=== PATIENT | male | born 1985 | race Caucasian/White ===

== ENCOUNTER → 2016-04-20 | Outpatient (CLI) | payer OTHER ==
--- NOTE | 2016-04-23 11:50 | RAD ---
EXAM DESCRIPTION: Chest,2 Views CLINICAL HISTORY: RULE OUT TB shortness of breath, chest pain COMPARISON: None available FINDINGS: The cardiomediastinal silhouette is unremarkable. There is no airspace consolidation or pleural effusion. The bronchovascular markings are within normal limits, and the lungs are not hyperinflated. There is no pneumothorax or acute fracture. IMPRESSION: Negative exam. Electronically signed by: Calos Prado MD 04/23/2016 11:50 AM [facility]
== END | disposition home or self-care (01) ==
LOC: YCFC.O 15:32
DX: Z11.1 Encounter for screening for respiratory tuberculosis (principal)